=== PATIENT | female | born 1940 | race Caucasian/White ===

== ENCOUNTER 2017-12-21 09:34 | Emergency (ER) | payer MEDICARE ==
[~2017-12-21] VITALS: Ht 166.4 cm; Wt 77.5 kg
[2017-12-21] MEDS ORDERED: VALS1TAB28 PO (10:08)
[2017-12-21] MEDS ORDERED: CLOP75TA52 PO (10:08)
[2017-12-21] MEDS ORDERED: ASPI-515 PO (10:08)
[2017-12-21] MEDS ORDERED: SIMV40TA3 PO (10:08)
[2017-12-21] MEDS ORDERED: LEVO25TA4 PO (10:08)
[2017-12-21] MEDS ORDERED: LABETALOL 5MG/ML, 20ML ONE (10:20)
[2017-12-21 10:21] LABS: MEAN CORPUSCULAR HEMOGLOBIN 30.6 pg (27.0-34.8); MEAN CORPUSCULAR HGB CONC 33.4 g/dL (32.4-35.8); MEAN CORPUSCULAR VOLUME 91.7 fL (80-100); MEAN PLATELET VOLUME 8.6 fL (7.4-10.4); PLATELET COUNT 263 x10^3/uL (130-400); RED BLOOD COUNT 4.69 x10^6/uL (3.82-5.3); RED CELL DISTRIBUTION WIDTH 12.9 % (9.6-15.2)
[2017-12-21 10:30] LABS: ANION GAP 6 mmol/L (5-15); CALCIUM 9.3 mg/dL (8.5-10.1); CHLORIDE 108 mmol/L (98-107); CREATININE 0.97 mg/dL (0.55-1.02)
[2017-12-21] MEDS ORDERED: LABETALOL 5MG/ML, 20ML IVPush ONE (10:30)
[2017-12-21 10:43] LABS: BASOPHILS # (AUTO) 0.06 x10^3/uL (0-0.1); BASOPHILS % (AUTO) 1 % (0-1); EOSINOPHILS # (AUTO) 0.09 x10^3/uL (0-0.4); EOSINOPHILS % (AUTO) 2 % (1-7); LYMPHOCYTES # (AUTO) 1.73 x10^3/uL (1-3.4); LYMPHOCYTES % (AUTO) 34 % (22-44); MD SCAN; MONOCYTES # (AUTO) 0.48 x10^3/uL (0.2-0.8); MONOCYTES % (AUTO) 9 % (2-9); NEUTROPHILS # (AUTO) 2.74 x10^3/uL (1.8-6.8); NEUTROPHILS % (AUTO) 54 % (42-75)
[2017-12-21] MEDS ORDERED: POTASSIUM CHLORIDE 20 MEQ TAB.ER.PRT ONE (11:25)
[2017-12-21 11:28] VITALS: BP 165/87
[2017-12-21] MEDS ORDERED: SODIUM CHLORIDE FLUSH 10ML SYR IVF ONE (11:30)
[2017-12-21] MEDS ORDERED: POTASSIUM CHLORIDE 20 MEQ TAB.ER.PRT PO ONE (12:00)
== END 2017-12-21 11:57 | disposition home or self-care (01) ==
LOC: ED 11:43
DX: I10 Essential (primary) hypertension (principal); E87.6 Hypokalemia; E78.00 Pure hypercholesterolemia, unspecified; E05.90 Thyrotoxicosis, unspecified without thyrotoxic crisis or storm; Z86.718 Personal history of other venous thrombosis and embolism
CPT/HCPCS: 36415; 71045; 80048; 82040; 85025; 93005; 96374

== ENCOUNTER 2017-12-21 21:33 | Emergency (ER) | payer MEDICARE ==
[~2017-12-21] VITALS: Ht 167.6 cm; Wt 76.7 kg
[~2017-12-21 21:33] MED LIST: ASPI-515 PO; CLOP75TA52 PO; LEVO25TA4 PO; SIMV40TA3 PO; VALS1TAB28 PO
[2017-12-21 22:47] LABS: THYROID STIMULATING HORMONE 2.13 mIU/L (0.358-3.740)
[2017-12-21] MEDS ORDERED: hydrALAzine 20 MG/ML, 1ML ONE (23:46)
[2017-12-22] MEDS ORDERED: hydrALAzine 20 MG/ML, 1ML IV ONE
[2017-12-22 02:17] VITALS: BP 120/58
== END 2017-12-22 02:36 | disposition home or self-care (01) ==
LOC: ED 23:14
DX: I10 Essential (primary) hypertension (principal); E05.90 Thyrotoxicosis, unspecified without thyrotoxic crisis or storm; Z86.718 Personal history of other venous thrombosis and embolism
CPT/HCPCS: 36415; 84436; 84443; 84481; 96374; 99284; J0360

== ENCOUNTER 2018-05-31 03:48 | Emergency (ER) | payer MEDICARE ==
[~2018-05-31] VITALS: Ht 165.1 cm; Wt 77.4 kg
[2018-05-31 03:49] VITALS: BP 188/92
[2018-05-31] MEDS ORDERED: LIDOCAINE-MPF 2%, 2ML INFIL ONE (04:00)
[2018-05-31] MEDS ORDERED: LIDOCAINE-MPF 2%, 2ML ONE (04:01)
[2018-05-31] MEDS ORDERED: DIPH,PERTUSS(ACELL),TET VAC/PF 0.5 ML IM-VACC ONE ×2 (04:05→04:30)
[2018-05-31] MEDS ORDERED: BACITRACIN ZINC OINT 500U/GM, 0.9 GM ONE (05:08)
== END 2018-05-31 05:23 | disposition home or self-care (01) ==
LOC: ED 05:16
DX: S06.0X0A Concussion without loss of consciousness, initial encounter (principal); S01.511A Laceration without foreign body of lip, initial encounter; I10 Essential (primary) hypertension; W01.0XXA Fall on same level from slipping, tripping and stumbling without subsequent striking against object, initial encounter; Y93.89 Activity, other specified; Y99.8 Other external cause status; Y92.89 Other specified places as the place of occurrence of the external cause
CPT/HCPCS: 12051; 70450; 90471; 90715